=== PATIENT | male | born 1975 | race Two or more races ===

== ENCOUNTER → 2022-07-10 | Outpatient (CLI) | payer OTHER ==
[~2022-07-10] MED LIST: IOHEXOL 300 MG/ML 100ML BOTTLE IJ ONE
[2022-07-10 09:03] LABS: Anion Gap 10 (5-15); BUN/Creatinine Ratio 13.8; Blood Urea Nitrogen 18 mg/dL (7-18); Calcium 9.3 mg/dL (8.5-10.1); Carbon Dioxide 25 mmol/L (21-32); Chloride 106 mmol/L (98-107); GFR African American 76 mL/min; GFR Non-African American 63 mL/min; Glucose 87 mg/dL (74-106); Potassium 4.1 mmol/L (3.5-5.1); Sodium 141 mmol/L (136-145)
== END | disposition home or self-care (01) ==
LOC: XYW 07:42
DX: M47.814 Spondylosis without myelopathy or radiculopathy, thoracic region (principal); R59.9 Enlarged lymph nodes, unspecified
CPT/HCPCS: 36415; 71260; 80048; Q9967